=== PATIENT | female | born 1995 | race Caucasian/White ===

== ENCOUNTER 2016-10-04 17:25 | Emergency (ER) | payer BC ==
[~2016-10-04] VITALS: Ht 177.8 cm; Wt 110.6 kg
[2016-10-04 17:46] VITALS: TEMP 37.1; Ht 177.8 cm; Wt 110.6 kg
[2016-10-04] MEDS ORDERED: KETOROLAC TROMETHAMINE 60 MG/2 ML VIAL IM STA (18:00)
--- NOTE | 2016-10-04 19:06 | DIAGNOSTIC IMAGING REPORT ---
L-SPINE MIN 4 VIEWS ROUTINE CLINICAL HISTORY: Low back pain. COMPARISON: None FINDINGS: Alignment of the lumbar spine is anatomic. There is a transitional vertebra at the lumbosacral junction. This is considered L5 with hemisacralization of the left aspect of L5. Vertebral body heights are maintained. There is no fracture or suspicious lesion. There is mild disc space narrowing at L5-S1. IMPRESSION: 1. No lumbar spine fracture or subluxation. 2. Mild disc space narrowing at L5-S1. 2. 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 Electronically signed by: Mikey Rebolledo M.D. 10/04/2016 7:05 PM Dictated Date/Time: 10/04/2016 7:04 PM
--- NOTE | 2016-10-04 19:15 | EMERGENCY ROOM VISIT NOTE ---
ED Visit Note First contact with patient: 17:54 CHIEF COMPLAINT: Low back pain HISTORY OF PRESENT ILLNESS: This 21-year-old female presents the ER with chief complaint of low back pain which started yesterday. The patient states that is directly over the bony region. Patient states that when she walks it radiates up her back. The patient denies any pain radiating down her legs or any numbness and tingling. The patient denies any urinary symptoms of frequency, urgency, dysuria or hematuria. The patient denies any saddle anesthesia or any loss of bowel or bladder control. The patient denies any prior back problems. REVIEW OF SYSTEMS: 6 system review was performed and was negative unless stated otherwise in history of present illness. PMH: The patient is healthy; there is no significant medical or surgical history. SOCIAL HISTORY: Patient is a [employer] student. The patient denies any tobacco or alcohol use. PHYSICAL EXAM: Vital Signs normal: Reviewed Nurse's notes and agree. GEN.: 21- year-old white female appears in no acute distress. MENTAL STATUS: Alert and oriented in no acute distress. LUMBAR SPINE: No gross bony abnormality noted. Patient is tender to palpation over the lower spinous processes. She is tender to palpation over the paravertebral regions bilaterally. She has limited range of motion with flexion and extension.. Muscle strength is 5 out of 5 bilateral lower extremities and symmetrical. NEURO: Patient is able to heel and toe walk without difficulty. I lateral patellar and Achilles reflexes are 2+. Sensation is intact to pinprick bilateral lower extremities. Negative straight leg raise bilaterally. EMERGENCY DEPARTMENT COURSE: The patient was evaluated. The patient drove herself to the emergency room. The patient was given Toradol 60 mg IM for pain. X-ray of the lumbar spine was ordered and interpreted by the radiologist and myself. DIAGNOSTICS:L-SPINE MIN 4 VIEWS ROUTINE CLINICAL HISTORY: Low back pain. COMPARISON: None FINDINGS: Alignment of the lumbar spine is anatomic. There is a transitional vertebra at the lumbosacral junction. This is considered L5 with hemisacralization of the left aspect of L5. Vertebral body heights are maintained. There is no fracture or suspicious lesion. There is mild disc space narrowing at L5-S1. IMPRESSION: 1. No lumbar spine fracture or subluxation. 2. Mild disc space narrowing at L5-S1. 2. 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 Electronically signed by: Mikey Rebolledo M.D. 10/04/2016 7:05 PM The patient was informed of the findings. The patient was discharged home in stable condition. DIAGNOSIS: Lumbar strain DISCHARGE INSTRUCTIONS AND TREATMENT: Ibuprofen 600 mg every 6 hours with food for pain. Rx is given for [place] 5/325 mg. 1-2 tablets every 6 hours as needed for more severe pain. Dispense [address] taking the [place]. Patient was also given Rx for Flexeril 10 mg. One tablet p.o. every 8 hours for muscle spasms. Dispense [address] taking the Flexeril. Avoid staying in any one position for an extended period of time. If symptoms persist or worsen, follow up with your family doctor for referral for additional testing. Current/Historical Medications No Active Prescriptions or Reported Meds Allergies Coded Allergies: Lactose (Verified Adverse Reaction, Intermediate, GI UPSET, 10/04/16) Vital Signs Date Time Temp Pulse Resp B/P Pulse Ox O2 Delivery O2 Flow Rate FiO2 10/04/16 17:46 37.1 93 18 155/95 97 Room Air Medications Administered Medications (Trade) Dose Ordered Sig/Trinity Route Start Time Stop Time Status Last Admin Dose Admin Ketorolac Tromethamine (Toradol Inj) 60 mg NOW STAT IM 10/04/16 18:00 10/04/16 18:01 DC 10/04/16 19:06 60 MG Departure Information Prescriptions No Active Prescriptions or Reported Meds Referrals No Doctor, Assigned (PCP) Patient Instructions [facility]
[2016-10-04] MEDS ORDERED: HYDR-5688 PO (19:16)
[2016-10-04] MEDS ORDERED: CYCL10TA6 PO (19:16)
[2016-10-04 19:29] VITALS: BP 152/79; PULSE 68; O2SAT 97
== END 2016-10-04 19:27 | disposition home or self-care (01) ==
LOC: C.EDB 17:28 → C.EDD 19:27
DX: S39.012A Strain of muscle, fascia and tendon of lower back, initial encounter (principal); X58.XXXA Exposure to other specified factors, initial encounter